=== PATIENT | female | born 1980 | race African-American/Black ===

== ENCOUNTER 2024-10-27 11:53 | Emergency (ER) | payer SELFPAY ==
[~2024-10-27] VITALS: Ht 165.1 cm; Wt 90.0 kg
[2024-10-27 11:55] VITALS: BP 145/96; PULSE 106; RESP 16; TEMP 36.9; O2SAT 98
[2024-10-27 16:18] LABS: BASOPHILS % 0.6 % (0.0-2.0); EOSINOPHILS % 0.6 % (0.0-5.0); HEMATOCRIT. 43.1 % (36.0-48.0); HEMOGLOBIN. 13.7 g/dL (12.0-16.0); LYMPHOCYTES % 54.4 % (20.0-50.0); MEAN CORPUSCULAR HEMOGLOBIN 31.2 pg (28.0-32.0); MEAN CORPUSCULAR HGB CONC 31.9 g/dL (31.0-37.0); MEAN CORPUSCULAR VOLUME 97.8 fL (81.0-99.0); MEAN PLATELET VOLUME 8.6 fl (7.4-10.4); MONOCYTES % 8.4 % (2.0-8.0); PLATELET 184 x1000/uL (130-400); RED CELL DISTRIBUTION WIDTH 14.8 % (11.6-14.6); WHITE BLOOD COUNT 4.9 x1000/uL (4.5-11.0)
[2024-10-27 16:28] LABS: CHLORIDE 100 mEq/L (98-107); POTASSIUM 3.7 mEq/L (3.5-5.1); SODIUM 139 mEq/L (136-145)
[2024-10-27 16:29] LABS: CALCIUM 8.8 mg/dL (8.7-10.4); CARBON DIOXIDE 24 mEq/L (21-32)
[2024-10-27 16:31] LABS: D-DIMER 1.86 mg/L FEU (<0.50); INR 0.9; PROTHROMBIN TIME 9.9 sec (9.6-11.0)
[2024-10-27] MEDS: ACETAMINOPHEN 325MG TABLET PO NR (16:33)
[2024-10-27 16:34] LABS: CREATININE 0.6 mg/dL (0.6-1.0); ETHANOL BLOOD 222 mg/dL (<10); GLUCOSE 77 mg/dL (70-105); UREA NITROGEN BLOOD < 5 mg/dL (9-23)
[2024-10-27] MEDS ORDERED: AMOX1TAB16 MT (16:45)
[2024-10-27] MEDS ORDERED: OFLO5DRO4 LEFT EAR (16:45)
[2024-10-27] MEDS ORDERED: NAPR-681 MT (16:45)
== END 2024-10-27 17:08 | disposition home or self-care (01) ==
LOC: ER 13:50
DX: H61.22 Impacted cerumen, left ear (principal)
CPT/HCPCS: 36415; 69209; 69210; 80048; 80320; 85025; 85379; 93971; 99284; G0480